=== PATIENT | male | born 1990 | race Caucasian/White ===

== ENCOUNTER 2020-05-03 16:32 | Outpatient (REF) | payer MEDICARE, MEDICAID, SELFPAY ==
[2020-05-03 17:55] LABS: Anion Gap 16 (12-20); Blood Urea Nitrogen 20 mg/dL (9-16); Calcium 10.1 mg/dL (8.4-10.2); Carbon Dioxide 29 mmol/L (22-29); Chloride 97 mmol/L (96-108); Estimated Glomerular Filt Rate > 60; Glucose Random 131 mg/dL (60-115); Sodium 138 mmol/L (135-145)
== END 2020-05-03 16:33 | disposition home or self-care (01) ==
LOC: HO.LAB 16:32
PROVIDERS: PCP Internal Medicine; Visit Provider Internal Medicine
DX: I10 Essential (primary) hypertension (principal)
CPT/HCPCS: 36415; 80048

== ENCOUNTER 2021-02-06 10:04 | Emergency (ER) | payer MEDICARE, OTHER, SELFPAY ==
--- NOTE | 2021-02-06 | ECG_ITS ---
Test Reason : chest pain Blood Pressure : / mmHG Vent. Rate : 102 BPM Atrial Rate : 102 BPM P-R Int : 132 ms QRS Dur : 076 ms QT Int : 338 ms P-R-T Axes : 042 -09 057 degrees QTc Int : 440 ms Sinus tachycardia Left axis deviation Otherwise normal ECG No previous ECGs available Referred By: Generic ED Physician Electronically Signed By:SUSHANT MCDOWELL MD
--- NOTE | ~2021-02-06 | XR_ITS ---
EXAMINATION: XR CHEST CLINICAL INFORMATION: Chest pain COMPARISON: Chest radiographs 05/12/2015 TECHNIQUE: Frontal view of the chest was obtained. FINDINGS: The lungs are clear. There is no pneumothorax or pleural reaction. No airspace consolidation or effusion. The heart is normal in size. The hilar and mediastinal contours and visualized bony structures are unremarkable. XR/XR chest 1V IMPRESSION: Unremarkable examination.
[2021-02-06 10:10] VITALS: BP 163/117; PULSE 98; RESP 19; TEMP 36.9; O2SAT 98; BMI 41.0
--- NOTE | 2021-02-06 11:21 | ED_ITS ---
HPI - General Adult General Chief complaint: General Medical Stated complaint: hbp Time Seen by Provider: 02/06/21 11:09 Source: patient Mode of arrival: ambulatory Limitations: no limitations History of Present Illness HPI narrative: 30-year-old male with a past medical history of hypertension, anxiety, asthma, [id number] diabetes with complaints of high blood pressure. Patient tells me that he was taking lisinopril, hydrochlorothiazide until about 8 months ago when he discontinued the medication due to side effects. Patient tells me at that time he also to not taking his metformin because he thought this may also be contributing to his side effects. He tells me that his side effects consistent anxiety, intermittent chest pain, increased urination. Patient tells me he has been checking his blood sugars since discontinued the metformin and has been running normal throughout the day. He tells me he discussed the side effects his primary care doctor but does not feel like they are listening to him. He also complaining of intermittent chest pain over this course of time which comes on during rest and with exertion and last for several seconds and then self-resolves. It feels like a punch. No associated shortness of breath, nausea, vomiting, vision changes, headache, dizziness, diaphoresis or shortness of breath. Also admits to anxiety. Has longstanding history of same. Had been seeing a therapist but has not seen 1 in quite some time and is interested today. No suicidal thoughts Related Data Previous Rx's Medication Instructions Recorded hydrochlorothiazide 25 mg tablet 25 mg PO DAILY #30 tab 02/06/21 lisinopril 20 mg tablet 20 mg PO DAILY #30 tab 02/06/21 Allergies Allergy/AdvReac Type Severity Reaction Status Date / Time No Known Allergies Allergy Unverified 12/14/19 16:12 [No Known Allergies*] Review of Systems Review of Systems: Yes all other systems are reviewed and are negative Constitutional: Constitutional: Reports no additional constitutional complaints, Denies body ache(s), Denies chills, Denies fever(s), Denies headache(s) and Denies weakness Eyes: Eyes: Reports no additional eye complaints and Denies change in vision ENT: Reports system reviewed and no additional complaints, except as documented, Denies dizziness, Denies headache(s), Denies nasal congestion, Denies nasal discharge and Denies neck pain Cardiovascular: Cardiovascular: Reports no additional cardiovascular complaints, Reports chest pain, Denies leg edema and Denies dyspnea Respiratory: Respiratory: Reports no additional respiratory complaints, Denies cough and Denies dyspnea Gastrointestinal: Gastrointestinal: Reports no additional gastrointestinal complaints, Denies abdominal pain, Denies diarrhea, Denies nausea and Denies vomiting Genitourinary: Genitourinary: Denies urinary incontinence Musculoskeletal: Musculoskeletal: Reports no additional musculoskeletal complaints, Denies back pain, Denies arthralgias, Denies joint swelling, Denies neck pain, Denies numbness and Denies tingling Integumentary/Breasts: Skin/Breast: Reports system reviewed and no additional complaints, except as docu and Denies rash Neurologic: Reports system reviewed and no additional complaints, except as documented, Denies Abnormal speech present, Denies dizziness, Denies headache(s), Denies numbness, Denies tingling and Denies weakness Psychiatric: Psychiatric: Reports anxiety PMFSH Past Medical History Attestation statement: The following information was validated with the patient. Source: old records reviewed and nursing notes reviewed Medical History (Reviewed 02/06/21 @ 11: by Anisa Goodrich NP) Asthma Diabetes type 2, uncontrolled HTN (hypertension) Social History Social History (Reviewed 02/06/21 @ 11: by Anisa Goodrich NP) Advance Directives: No Advance Directives Information Provided: No Physical Exam Vital Signs: Vital Signs: Last Vital Signs Temp 98.2 F 02/06/21 11:28 Pulse 83 02/06/21 13:25 Resp 17 02/06/21 11:28 BP 150/89 H 02/06/21 13:25 Pulse Ox 97 02/06/21 11:28 Body Mass Index 41.0 Const: General: cooperative, healthy appearing, comfortable and no acute distress Orientation/consciousness: patient oriented x3 Limitations: no limitations HENMT: Head: Yes normal to inspection Ears: hearing grossly normal bilaterally General nose exam: Normal external nose present Face and sinus: Yes normal facial exam Mouth: Normal oral and palatal mucosa present Throat: Yes posterior oropharynx normal Eyes: General: appearance normal, both eyes and all related structures Pupils: Equal, round and reactive pupils present Neck: Neck: Yes normal visual inspection Chest: Chest palpation & inspection: normal inspection of the chest Resp: Effort & Inspection: normal respiratory effort Auscultation: clear to auscultation bilaterally Cardio: Rate: regular rate Rhythm: regular rhythm Peripheral pulses: Peripheral pulses 2+ throughout GI: Inspection: Yes normal to inspection Palpation (GI): Soft to palpation and nontender Auscultation: normal bowel sounds Back/Spine/Pelvis: Thoracic/Lumbar Spine: thoracic and lumbar spine normal to inspection Skin: General skin exam: no rashes or lesions noted Neuro: General: patient oriented x3, no focal motor deficits and normal sensation to monofilament Cranial nerves: Yes Equal, round and reactive pupils present Cognition (Neuro): normal cognition Speech: No Abnormal speech present Gait exam (Neuro): Normal gait present Motor exam (neuro): 5/5 motor strength present throughout Extrem: General: Yes normal to inspection, Yes no pedal edema and Yes no calf tenderness Course Course Course Narrative: 30-year-old male with the history of asthma, anxiety, vvn-muokzdr-lsokaggda diabetes, hypertension non compliant with medication here with complaints of high blood pressure, intermittent chest pain and feeling anxious for months. Patient discontinued his medications due to side effects which he says are chest pain, anxiety and increased urination. He did take his blood pressure medications this morning at 08:30 (lisinopril 20m g, HCTZ 25mg) but feels like they did not help. Chest pain is been intermittent for months. Will check labs, EKG, chest x-ray. Repeat blood pressure nursing when I saw the patient was 170/90. Will add 20 mg of lisinopril. Involved care team as patient reports increased anxiety and is seeking outpatient referral. [facility] patient no longer has a primary care doctor and is seeking new one. 1300-labs, EKG show no acute finding. Chest x-ray is negative. Patient was given referrals for [facility] and primary care follow-up. Medical Decision Making MDM Narrative Medical decision making narrative: Less likely ACS with intermittent pain for 3 months, negative troponin and EKG Medical Records Medical records reviewed: Yes I reviewed the patient's medical records. Lab Data Lab results reviewed: Yes I reviewed the patient's lab results. Result diagrams: 02/06/21 11:49 02/06/21 11:49 Labs: Lab Results 02/06/21 02/06/21 02/06/21 Range/Units 11:49 11:49 11:49 WBC 8.9 (4.8-10.8) X10*3/uL RBC 5.50 (4.60-5.80) X10*6/uL Hgb 16.2 (14.0-18.0) g/dl Hct 47.0 (42.0-52.0) % MCV 85.5 (80.0-98.0) fL MCH 29.5 (27.0-33.0) pg MCHC 34.5 (31.0-36.0) g/dl RDW 11.9 (11.0-16.0) % Plt Count 233 (160-400) X10*3/uL MPV 11.9 (9.4-12.4) fL Immature Gran % (Auto) 0.6 H (0.0-0.4) % Neut % (Auto) 73.5 H (45-73) % Lymph % (Auto) 18.7 L (20-40) % [place] % (Auto) 6.2 (2-11) % Eos % (Auto) 0.7 (0-4) % Baso % (Auto) 0.3 (0-2) % Lymph # (Auto) 1.7 (1.2-4.9) X10*3/uL [place] # (Auto) 0.6 (0.1-1.2) X10*3/uL Eos # (Auto) 0.1 (0.0-0.4) X10*3/uL Baso # (Auto) 0.0 (0.0-0.2) X10*3/uL Abs Immat Gran (auto) 0.05 H (0.00-0.03) X10*3/uL Absolute Neuts (auto) 6.5 (2.0-8.3) x10*3/uL Absolute Nucleated RBC 0.000 (0.0-0.012) X10*3/uL Nucleated RBC % (auto) 0.0 (0.0-0.2) /100WBC Sodium 133 L (135-145) mmol/L Potassium 3.7 (3.3-5.1) mmol/L Chloride 97 (96-108) mmol/L Carbon Dioxide 29 (22-29) mmol/L Anion Gap 11 L (12-20) BUN 12 (9-16) mg/dL Creatinine 0.83 (0.5-1.4) mg/dL Estim Creat Clear Calc 145.2 Estimated GFR > 60 Random Glucose 198 H D (60-115) mg/dL Calcium 10.1 (8.4-10.2) mg/dL Troponin I High Sens 3.7 (<3.5-35.0) ng/L Imaging Data Chest x-ray: Attestation: I personally reviewed and interpreted this imaging study as follows: Radiologist's impression: [place] [id number] XRay Report Signed Patient: Lalo Glover MR#: [id number] : 1990 Acct:[id number] Age/Sex: 30 / M ADM Date: 02/06/21 Loc: .ED Attending Dr: Ordering Physician: Zeus Henriquez MD Date of Service: 02/06/21 Procedure(s): XR chest 1V Accession Number(s): [id number] cc: Zeus Henriquez MD~ EXAMINATION: XR CHEST CLINICAL INFORMATION: Chest pain COMPARISON: Chest radiographs 05/12/2015 TECHNIQUE: Frontal view of the chest was obtained. FINDINGS: The lungs are clear. There is no pneumothorax or pleural reaction. No airspace consolidation or effusion. The heart is normal in size. The hilar and mediastinal contours and visualized bony structures are unremarkable. XR/XR chest 1V IMPRESSION: Unremarkable examination. ? ECG Data Attestation: I personally reviewed and interpreted this ECG as follows: Interpretation: Sinus tachycardia with a rate of 102, normal MO, normal QRS Discharge Plan Discharge Clinical Impression: Hypertension, Atypical chest pain Patient Disposition: Home, Self-Care Instructions: Chest Wall Pain (ED), Hypertension and Diabetes (ED) Additional Instructions: Restart your medication You were given contact information for a new primary care as well as [facility] Prescriptions: New hydrochlorothiazide 25 mg tablet 25 mg PO DAILY Qty: 30 RF: 0 lisinopril 20 mg tablet 20 mg PO DAILY Qty: 30 RF: 0 Referrals: Xavi Khan MD [Primary Care Provider] - 2 days Discharge Date/Time: 02/06/21 13:34
[2021-02-06 11:28] VITALS: BP 170/98; PULSE 90; RESP 17; TEMP 36.8; O2SAT 97
[2021-02-06] MEDS: lisinopriL 20 MG TABLET PO (11:36)
[2021-02-06 11:59] LABS: MANUAL DIFF FLAG NO
[2021-02-06 12:03] LABS: Basophils Percent Auto 0.3 % (0-2); Eosinophils Absolute Auto 0.1 X10*3/uL (0.0-0.4); Eosinophils Percent Auto 0.7 % (0-4); Hemoglobin 16.2 g/dl (14.0-18.0); Imm Gran Abs Auto 0.05 X10*3/uL (0.00-0.03); Imm Gran Pct Auto 0.6 % (0.0-0.4); Lymphocytes Absolute Auto 1.7 X10*3/uL (1.2-4.9); Lymphocytes Percent Auto 18.7 % (20-40); Mean Corpuscular HGB Conc 34.5 g/dl (31.0-36.0); Mean Corpuscular Hemoglobin 29.5 pg (27.0-33.0); Mean Corpuscular Volume 85.5 fL (80.0-98.0); Mean Platelet Volume 11.9 fL (9.4-12.4); Monocytes Absolute Auto 0.6 X10*3/uL (0.1-1.2); Monocytes Percent Auto 6.2 % (2-11); Neutrophils Absolute Auto 6.5 x10*3/uL (2.0-8.3); Neutrophils Percent Auto 73.5 % (45-73); Platelet Count 233 X10*3/uL (160-400); Red Cell Distribution Width 11.9 % (11.0-16.0); White Blood Count 8.9 X10*3/uL (4.8-10.8)
[2021-02-06 12:17] LABS: Anion Gap 11 (12-20); Blood Urea Nitrogen 12 mg/dL (9-16); Calcium 10.1 mg/dL (8.4-10.2); Carbon Dioxide 29 mmol/L (22-29); Chloride 97 mmol/L (96-108); Creatinine Clr Calc Pharmacy 145.2; Estimated Glomerular Filt Rate > 60; Glucose Random 198 mg/dL (60-115); Potassium 3.7 mmol/L (3.3-5.1); Sodium 133 mmol/L (135-145)
[2021-02-06 12:23] LABS: Troponin-I High Sensitivity 3.7 ng/L (<3.5-35.0)
[2021-02-06 12:56] VITALS: BP 177/90; PULSE 81
[2021-02-06 13:25] VITALS: BP 150/89; PULSE 83
== END 2021-02-06 13:34 | disposition home or self-care (01) ==
PROVIDERS: Emergency Provider Emergency Medicine Emergency Medical Services; PCP Internal Medicine
DX: I10 Essential (primary) hypertension (principal); R07.89 Other chest pain; E11.9 Type 2 diabetes mellitus without complications; Z91.14 Patient's other noncompliance with medication regimen
CPT/HCPCS: 36415; 71045; 80048; 84484; 85025; 93005; 99283; 99284

== ENCOUNTER 2021-03-27 10:35 | Outpatient (REF) | payer MEDICARE, MEDICAID, SELFPAY ==
[2021-03-27 11:23] LABS: COVID-19 Test Positive (Negative); IDNOW Serial# 16C4AD1C
== END 2021-03-27 10:36 | disposition home or self-care (01) ==
LOC: HO.LAB 10:35
PROVIDERS: Visit Provider Internal Medicine
DX: Z20.822 Contact with and (suspected) exposure to COVID-19 (principal)
CPT/HCPCS: 36415; 87635; C9803

== ENCOUNTER 2021-07-11 15:05 | Emergency (ER) | payer MEDICARE, OTHER, SELFPAY ==
[2021-07-11] VITALS (8 sets, daily range): BP systolic 158–178; BP diastolic 87–113; PULSE 79–100; RESP 16–20; TEMP 36.6–37.2; O2SAT 96–99; BMI 39.1
--- NOTE | ~2021-07-11 | XR_ITS ---
EXAMINATION: XR CHEST CLINICAL INFORMATION: Chest pain COMPARISON: Chest 02/06/2021 TECHNIQUE: Frontal view of the chest was obtained. FINDINGS: No significant abnormality is noted involving the heart, lungs, mediastinum, bony thorax or soft tissues. XR/XR chest 1V IMPRESSION: Unremarkable chest examination.
--- NOTE | 2021-07-11 15:15 | ECG_ITS ---
Test Reason : CHEST PAIN Blood Pressure : / mmHG Vent. Rate : 104 BPM Atrial Rate : 104 BPM P-R Int : 140 ms QRS Dur : 076 ms QT Int : 334 ms P-R-T Axes : 033 -11 059 degrees QTc Int : 439 ms Sinus tachycardia Otherwise normal ECG When compared with ECG of 06-FEB-2021 10:20, No significant change was found Referred By: Generic ED Physician Electronically Signed By:Olaf Ackerman
[2021-07-11 15:34] LABS: MANUAL DIFF FLAG NO
[2021-07-11 15:37] LABS: Basophils Absolute Auto 0.1 X10*3/uL (0.0-0.2); Basophils Percent Auto 0.6 % (0-2); Eosinophils Absolute Auto 0.1 X10*3/uL (0.0-0.4); Eosinophils Percent Auto 0.7 % (0-4); Hematocrit 44.2 % (42.0-52.0); Hemoglobin 15.3 g/dl (14.0-18.0); Imm Gran Abs Auto 0.03 X10*3/uL (0.00-0.03); Imm Gran Pct Auto 0.3 % (0.0-0.4); Lymphocytes Absolute Auto 2.5 X10*3/uL (1.2-4.9); Lymphocytes Percent Auto 24.3 % (20-40); Mean Corpuscular HGB Conc 34.6 g/dl (31.0-36.0); Mean Corpuscular Hemoglobin 29.8 pg (27.0-33.0); Mean Corpuscular Volume 86.2 fL (80.0-98.0); Monocytes Absolute Auto 0.6 X10*3/uL (0.1-1.2); Monocytes Percent Auto 5.9 % (2-11); Neutrophils Absolute Auto 7.1 x10*3/uL (2.0-8.3); Neutrophils Percent Auto 68.2 % (45-73); Platelet Count 229 X10*3/uL (160-400); Red Blood Count 5.13 X10*6/uL (4.60-5.80); White Blood Count 10.4 X10*3/uL (4.8-10.8)
--- NOTE | 2021-07-11 15:48 | ED.CHESTPAIN ---
HPI - Chest Pain General Chief Complaint: Chest Pain Stated Complaint: High BP/chest pains Time Seen by Provider: 07/11/21 15:47 Source: patient Mode of arrival: ambulatory Limitations: no limitations History of Present Illness HPI narrative: This is a 30-year-old male past medical history significant for asthma, diabetes, hypertension presenting to the emergency department with complaints of chest pain and high blood pressure at home x1 day. Patient tells me that he wanted to come into the hospital because he forgot to take his blood pressure medicine he was not sure if he could take them later than his scheduled time. He noted that his blood pressure at home was systolic 190, diastolic 120. He tells me after he saw these numbers he became very anxious and started experiencing chest pain substernal in nature, nonradiating, a squeezing/heaviness sensation. He tells me that he typically gets this chest pain when he gets anxious. He tells me he also had a sleepless night. He denies shortness of breath, nausea, vomiting, diaphoresis, vision changes, dizziness, weakness. MD complaint: chest discomfort Onset (ago): day(s) (1) Timing of current episode: episodic Prior episodes: Yes Onset: during rest Pain location: substernal Pain radiation: none Severity: mild Quality: heaviness Relieving factors: nothing Exacerbating factors: nothing Treatment prior to arrival: none Related Data Previous Rx's Medication Instructions Recorded hydrochlorothiazide 25 mg tablet 25 mg PO DAILY #30 tab 02/06/21 lisinopril 20 mg tablet 20 mg PO DAILY #30 tab 02/06/21 hydroxyzine HCl 25 mg tablet 25 mg PO BID PRN #10 tab 07/11/21 Allergies Allergy/AdvReac Type Severity Reaction Status Date / Time No Known Allergies Allergy Verified 07/11/21 15:14 [No Known Allergies*] Review of Systems Review of Systems: Constitutional : No Weight loss, No Fever, No Chills, No Fatigue, No Malaise ENT/Mouth : No sore throat, No Rhinorrhea Eyes: No Eye Pain, No Swelling, No Redness Cardiovascular : No Chest Pain, No SOB, No Dyspnea on Exertion, No Orthopnea, No Edema, No Palpitations Respiratory : No Cough, No Sputum, No Wheezing Gastrointestinal : No Nausea, No Vomiting, No Diarrhea, No Constipation, No abdominal Pain, No Hematochezia, No Melena Genitourinary : No Dysuria, No Urinary Frequency, No Hematuria, Musculoskeletal : No joint pain, No Myalgias, No Joint Swelling Skin : No Skin Lesions, No rash Neuro : No Weakness, No Numbness, No Dizziness, No Headache Psych : No Anxiety/Panic, No Depression All other systems reviewed and are negative Yes all other systems are reviewed and are negative [facility] Past Medical History Attestation statement: The following information was validated with the patient. Source: nursing notes reviewed Medical History Asthma Diabetes type 2, uncontrolled HTN (hypertension) Social History Social History Advance Directives: No Advance Directives Information Provided: No Physical Exam Vital Signs: Vital Signs: Last Vital Signs Temp 99.0 F 07/11/21 20:00 Pulse 79 07/11/21 20:46 Resp 16 07/11/21 20:46 BP 169/109 H 07/11/21 20:46 Pulse Ox 96 07/11/21 20:46 BMI result Body Mass Index 39.1 Patient noted to be slightly tachycardic and hypertensive. Appearance: Alert.? Oriented X3.? No acute distress.? Head: Normocephalic, atraumatic, no step-offs or deformities Eyes: Pupils equal, round and reactive to light.? Extraocular movements intact. No nystagmus. ENT: Pharynx normal.? Neck: Normal inspection.? Neck supple.? CVS: Normal heart rate and rhythm.? Pulses normal.? Respiratory: No respiratory distress.? Breath sounds normal.? Abdomen: Soft and nontender.? Skin: Skin warm and dry.? Normal skin color.? Normal skin turgor.? Extremities: No lower extremity edema.? No calf ttp, neagtive deborah b/l. 5/5 strength to bilateral upper and lower extremities Back: No midline tenderness, no C-spine tenderness, full range of motion, no CVA tenderness bilaterally Neuro: Oriented X 3.? No motor deficit.? No sensory deficit. CN 2-12 intact . Normal diupys-db-vfrg, wphi-ye-otzs, steady tandem gait with normal coordination. Course Reevaluation(s) Reevaluation #1: CBC within normal limits. Chemistry with no acute electrolyte abnormalities. BUN slightly elevated and random glucose 213 patient will receive fluids. Troponin negative. EKG nonischemic unlikely that this is ACS. BNP pending. Patient's blood pressure improved slightly 165/87. Patient remains asymptomatic. Neuro exam is nonfocal. Time: 16:26 Reevaluation #2: Chest x-ray unremarkable. BNP within normal limits. Unlikely this is CHF. Time: 16:37 Reevaluation #3: At this time patient tells me he is feeling better no longer having chest pain 0/10. 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 He thinks that maybe this is the underlying cause of his high blood pressure. Denies SI and HI. He tells me he is feeling slightly overwhelmed with everything. Will give him a dose of Atarax and if this works he will be discharged home with this medication. Time: 17:18 Additional Reevaluation(s): Patient tells me he is anxious. His blood pressure still elevated however he denies any symptoms such as headache, vision changes, neck pain, palpitations, chest pain. He tells me that his chest pain has completely subsided. I gave him Atarax for anxiety he tells me he feels like it helped. I discussed this with my attending Dr. Riley who agrees with me that patient can be discharged home w/ pcp follow up and cardiology referral, she also recommend a 1 time dose of labetalol 100 mg p.o.. He tells me that he has blood pressure medications at home and he does not need refills for any of these, he tells me he will take them as prescribed, and he will follow up with PCP and cardiology. He will be discharged home with anxiety medicine. At this time I feel comfortable with discharge home with PCP and cardiology follow-up. Gave patient strict return precautions and advised him to return with new or worsening symptoms. MDM - Chest Pain MDM Narrative Medical decision making narrative: 1550 30 yo m presents with chest pain and hypertension x1 day. Not med compliant. NIH stroke scale 0. Physical exam benign. Neuro exam nonfocal. Negative deborah b/l. Patient is slightly hypertensive however will administer his home medications at this time. History and physical examination not consistent with dissection, PE. Unlikely that this is ACS. Likely anxiety. However will rule out ACS. Plan at this time is cardiac workup, cardiac monitoring. Medical Records Data Attestation: I reviewed the patient's medical records. Lab Data Attestation: I reviewed the patient's lab results. Result diagrams: 07/11/21 15:23 07/11/21 15:23 Labs: Lab Results 07/11/21 07/11/21 07/11/21 Range/Units 15: 15: 15: WBC 10.4 (4.8-10.8) X10*3/uL RBC 5.13 (4.60-5.80) X10*6/uL Hgb 15.3 (14.0-18.0) g/dl Hct 44.2 (42.0-52.0) % MCV 86.2 (80.0-98.0) fL MCH 29.8 (27.0-33.0) pg MCHC 34.6 (31.0-36.0) g/dl RDW 12.0 (11.0-16.0) % Plt Count 229 (160-400) X10*3/uL MPV 12.0 (9.4-12.4) fL Immature Gran % (Auto) 0.3 (0.0-0.4) % Neut % (Auto) 68.2 (45-73) % Lymph % (Auto) 24.3 (20-40) % [place] % (Auto) 5.9 (2-11) % Eos % (Auto) 0.7 (0-4) % Baso % (Auto) 0.6 (0-2) % Lymph # (Auto) 2.5 (1.2-4.9) X10*3/uL [place] # (Auto) 0.6 (0.1-1.2) X10*3/uL Eos # (Auto) 0.1 (0.0-0.4) X10*3/uL Baso # (Auto) 0.1 (0.0-0.2) X10*3/uL Abs Immat Gran (auto) 0.03 (0.00-0.03) X10*3/uL Absolute Neuts (auto) 7.1 (2.0-8.3) x10*3/uL Absolute Nucleated RBC 0.000 (0.0-0.012) X10*3/uL Nucleated RBC % (auto) 0.0 (0.0-0.2) /100WBC Sodium 137 (135-145) mmol/L Potassium 3.6 (3.3-5.1) mmol/L Chloride 101 (96-108) mmol/L Carbon Dioxide 26 (22-29) mmol/L Anion Gap 14 (12-20) BUN 17 H (9-16) mg/dL Creatinine 1.21 (0.5-1.4) mg/dL Estim Creat Clear Calc 100.4 Estimated GFR > 60 Random Glucose 213 H (60-115) mg/dL Calcium 9.7 (8.4-10.2) mg/dL Troponin I High Sens < 3.5 (<3.5-35.0) ng/L B-Natriuretic Peptide < 10 (<100) pg/mL ECG Data ECG #1: Attestation: I personally reviewed and interpreted this ECG as follows: ECG interpretation date: 07/11/21 ECG interpretation time: 15:52 Prior ECG tracings: available for review Interpretation: Ventricular rate of 104 MN normal, QRS normal, QT/QTC normal. EKG shows sinus tachycardia, no ST elevations or inversions concerning for ischemia. No significant changes when compared to EKG of January 2021. Critical Care Time Critical Care Time Critical Care Time: No Discharge Plan Discharge Clinical Impression: High blood pressure, Chest pain not due to acute coronary syndrome, Anxiety Patient Disposition: Home, Self-Care Instructions: Chest Pain (ED), Heart Healthy Diet (ED), Low-Sodium Diet (ED), Hypertension (ED), Anxiety (ED), Hypertension and Diabetes (ED) Additional Instructions: Take your medications as prescribed. If you were prescribed antibiotics today, it is important that you take your medication to their entirety, do not skip any doses, do not finish them early. Follow-up with your primary care provider this week. Follow up with cardiology wednesday call to schedule an appointment Return to the emergency department with new or worsening symptoms. Such as fevers, chills, chest pain, shortness of breath, nausea, vomiting, dizziness, headache, vision changes, lethargy, vision changes, palpitations, confusion In case of emergency call 911 Please check your blood pressure Wednesday, Wednesday, Wednesday write it down in please speak to your doctor about these findings. Prescriptions: New hydroxyzine HCl 25 mg tablet 25 mg PO BID PRN (Reason: anxiety) Qty: 10 0RF No Action hydrochlorothiazide 25 mg tablet 25 mg PO DAILY Qty: 30 0RF lisinopril 20 mg tablet 20 mg PO DAILY Qty: 30 0RF Referrals: Physician,None [Primary Care Provider] - 2 days Olaf Ackerman MD [Physician] - 2 days Stand Alone Forms: Work/School Release
[2021-07-11 15:51] LABS: Anion Gap 14 (12-20); Blood Urea Nitrogen 17 mg/dL (9-16); Calcium 9.7 mg/dL (8.4-10.2); Carbon Dioxide 26 mmol/L (22-29); Chloride 101 mmol/L (96-108); Creatinine Clr Calc Pharmacy 100.4; Estimated Glomerular Filt Rate > 60; Glucose Random 213 mg/dL (60-115); Potassium 3.6 mmol/L (3.3-5.1); Sodium 137 mmol/L (135-145)
[2021-07-11 16:02] LABS: Troponin-I High Sensitivity < 3.5 ng/L (<3.5-35.0)
[2021-07-11 16:34] LABS: B Type Natriuretic Peptide < 10 pg/mL (<100)
[2021-07-11] MEDS: hydroCHLOROthiazide 25 MG TABLET PO (16:36)
[2021-07-11] MEDS: lisinopriL 20 MG TABLET PO (16:36)
[2021-07-11] MEDS: 0.9 % Sodium Chloride 1,000 ML 999 ML IV (16:36)
[2021-07-11] MEDS: hydrOXYzine HCL 25 MG TABLET PO (18:48)
--- NOTE | 2021-07-11 18:55 | PC.NURSE ---
pt resting comfortably, denies chest discomfort.
[2021-07-11] MEDS: Labetalol HCL 100 MG TABLET PO (20:49)
--- NOTE | 2021-07-11 21:10 | PC.NURSE ---
pt denies pain, poc recheck 146 skin pink warm and dry. nsr 86 on monitor. pt alert oriented and denies n/v/d
[2021-07-11 21:14] LABS: Glucose, Whole Blood 146 mg/dL (60-115)
== END 2021-07-11 21:39 | disposition home or self-care (01) ==
LOC: HO.ED 15:52
PROVIDERS: Physician Assistant; Emergency Provider Emergency Medicine
DX: R07.89 Other chest pain (principal); F41.1 Generalized anxiety disorder; F43.0 Acute stress reaction; R06.02 Shortness of breath; I10 Essential (primary) hypertension; Z79.899 Other long term (current) drug therapy
CPT/HCPCS: 36415; 71045; 80048; 82947; 83880; 84484; 85025; 93005; 96360; 99284; 99285

== ENCOUNTER 2024-11-21 12:40 | Emergency (ER) | payer MEDICARE, SELFPAY ==
--- OUTSIDE RECORDS SUMMARY | 2024-11-21 11:00 | XMS_ITS | Encounter Summary ---
Author Organization [employer] Address [address] [facility] 7[address] [place] [address] Care Team Providers Care Crushing Mill Operator Name Role Phone Xavi Khan MD Primary Care Provider [phone] Encounter Details Date Type Department Care Team (Late st Contact Info) Description 11/21/2024 11:00 AM EDT Office Visit [facility] [address] [place], [place] [phone] Chris Thompson MD [address] [place] [address] Cutaneous abscess of left axilla (Primary Dx); Essential hypertension Social History Tobacco Use Types Packs/Day Years Used Date Smoking Tobacco: Never Smokeless Tobacco: Never Alcohol Use Standard Drinks/Week Comments Never 0 (1 standard drink = 0.6 oz pur e alcohol) Depression Answer Date Recorded Patient Health Questionnaire-9 Score 0 06/11/2022 Housing Stability Answer Date Recorded What is your housing situation today? I have camryn waters 02/09/[address] you li ve. Do you have problems with any of the following? None of the above 02/09/2024 Food Insecurity Answer Date Recorded Within the past 12 months, y ou worried that your food would run out before you got money to buy more: Never True 02/09/2024 Within the past 12 months,th e food you bought just didn't last and you didn't have enough money to get more: Never True Transportation Answer Date Recorded In the past 12 months, has l ack of transportation kept you from medical appts, meetings, work or from getting things needed for daily living? Yes, it has kept me from medical appointments or getting medications. 09/12/2024 Utilities Answer Date Recorded In the past 12 months, has t he electric, gas, oil or water company threatened to shut off services in your home? No 02/09/2024 Depression Answer Date Recorded Patient Health Questionnaire-2 Score 0 06/11/2022 Internet Access Answer Date Recorded Internet Access Q1 Yes 02/09/2024 Internet Access Q2 Not on file 02/09/2024 Sex and Gender Information Value Date Recorded Sex Assigned at Male 01/26/2022 10:17 AM EDT Legal Sex Male 10:17 AM EDT Gender Identity Choose not to disclose 10:17 AM EDT Sexual Orientation Choose not to disclose 2021 10:17 AM EDT documented as of this encounter Last Filed Vital Signs Vital Sign Reading Time Taken Comments Blood Pressure 158/110 11/21/2024 12:04 PM EDT Pulse 96 11/21/2024 11:11 AM EDT Temperature - - Respiratory Rate 16 11/21/2024 11:11 AM EDT Oxygen Saturation 98% 11/21/2024 11:11 AM EDT Inhaled Oxygen Concentration - - Weight 98.2 kg (216 lb 6.4 oz) 11/21/2024 11:11 AM EDT Height 172.7 cm (5' 8 ) 11/21/2024 11:11 AM EDT Body Mass Index 32.9 11/21/2024 11:11 AM EDT documented in this encounter Progress Notes * Chris Thompson MD - 11/21/2024 11:00 AM EDT Subjective Patient ID: Lalo Berry is a 34 y.o. adult. HPI Lalo noted painful, swollen area in left axilla. Using warm compresses. No fever, chills, drainage. Ran out of Med[employer] yesterday, didn't take meds today. Lives alone. Works maintenance. Never smoked. Patient Active Problem List Diagnosis Date Noted Type 2 diabetes mellitus with hyperglycemia, without long-term current use of insulin ([facility]) 09/19/2024 Essential hypertension 06/11/2022 Liver function test abnormality 03/14/2022 Obesity (BMI 30-39.9) 02/27/2016 The following portions of the chart were reviewed this encounter and updated as appropriate: Tobacco Allergies Meds Problems Med Hx Surg Hx Fam Hx Review of Systems Constitutional: Negative for fever. Respiratory: Negative for shortness of breath. Cardiovascular: Negative for chest pain. Gastrointestinal: Negative for abdominal pain. Skin: Positive for rash. Neurological: Negative for headaches. Objective Physical Exam Vitals and nursing note reviewed. Constitutional: Appearance: Normal appearance. HENT: Head: Normocephalic and atraumatic. Nose: Nose normal. Eyes: Conjunctiva/sclera: Conjunctivae normal. Pupils: Pupils are equal, round, and reactive to light. Pulmonary: Effort: Pulmonary effort is normal. Skin: General: Skin is warm and dry. Comments: Erythematous, swollen, fluctuant, tender abscess left axilla. 5.5 cm diameter Neurological: Mental Status: Lalo is alert. Gait: Gait is intact. Psychiatric: Mood and Affect: Mood and affect normal. Behavior: Behavior normal. Procedures Assessment/Plan Diagnoses and all orders for this visit: Cutaneous abscess of left axilla [facility] general surgeons are unable to schedule the patient. Prescribed doxycycline. He will be going to [facility] emergency department now for presumptive I&D. Essential hypertension I spoke with the [facility] pharmacy, and they state the patient's med box has been ready for pickup. He agreed to get the med box today and restart his medication. BP will be rechecked at the ED. Has home BP monitor. States BP is usually elevated when he checks it. Reviewed BP parameters, given written BP log that includes BP parameters, to keep daily. He will bring BP log to PCP visit that was scheduled for December 05. documented in this encounter Plan of Treatment Upcoming Encounters Date Type Department Care Team (Late st Contact Info) Description 12/05/2024 2:00 PM EDT Office Visit [facility] [address] [place] [address] Xavi Khan MD [address] [place] [address] 12/11/2024 11:00 AM EDT Medication Management [facility] [address] [place] [address] Radha Zayas, PharmD [address] [place] [address] documented as of this encounter Goals Goal Patient Goal Type Associated Problems Recent Progress Patient-Stated? Author Blood Pressure < 140/90 Blood Pressure 158/110(2024 12:04 PM EDT) No Eric Marie, PharmD documented as of this encounter Visit Diagnoses Diagnosis Cutaneous abscess of left axilla- Primary Essential hypertension Unspecified essential hypertension documented in this encounter Additional Health Concerns Assessment Noted Time PHQ-9 Depression Total Score: 0 06/12/19 23 2:27 PM EDT documented as of this encounter Care Teams Crushing Mill Operator Relationship Specialty Start Date End Date Xavi Khan MD [address] [place] [address] PCP - General Internal Medicine 03/29/18 documented as of this encounter
[2024-11-21 14:04] VITALS: BP 156/92; PULSE 91; RESP 18; TEMP 37; O2SAT 95; BMI 35.2
--- NOTE | 2024-11-21 14:19 | ED_ITS ---
HPI - General Adult General Chief complaint: Skin/Abscess/Foreign Body Stated complaint: Cyst, sent from urgent care Time Seen by Provider: 11/21/24 19:27 Source: patient Mode of arrival: ambulatory Limitations: no limitations History of Present Illness ED Provider: Peter SEE HPI narrative: Patient is a 34-year-old male presenting to the ED for evaluation of an abscess of the left axilla/arm. Patient reports for the past few months he has been suffering from recurrent small abscesses which tend to pop and drain, denies any symptoms on the right, patient reports he was attributing this to deodorant use, has not seen a PCP or can filling room sweeper regarding the findings. The patient denies associated fever/chills, nausea, vomiting, or other systemic complaint, denies any distal paresthesias or impaired range of motion. The patient reports he went to urgent care today and was sent to the ED by urgent care who stated they were unable to drain the abscess. Related Data Previous Rx's ?Medication ?Instructions ?Recorded hydrochlorothiazide 25 mg tablet 25 mg PO DAILY #30 ta bs 02/06/21 lisinopril 20 mg tablet 20 mg PO DAILY #30 tabs 01/27 04/18 hydroxyzine HCl 25 mg tablet 25 mg PO BID PRN anxiety #10 tabs 07/11/21 doxycycline hyclate 100 mg capsule 100 mg PO BID #20 c aps 11/21/24 Allergies Allergy/AdvReac Type Severity Reaction Status Date / Time No Known Allergies (No Known Allergy Verified 11/21/24 14:06 Allergies*) Review of Systems Review of Systems: Yes all other systems are reviewed and are negative PMFSH Past Medical History Medical History Asthma Diabetes type 2, uncontrolled HTN (hypertension) Social History Social History (System 11/15/23 @ 14:31 by Katherine Mcdaniel) Alcohol intake: never Advance Directives: No Advance Directives Information Provided: No Physical Exam ED Vital Signs: Vital Signs - 24 hr 11/21/24 14:04 11/21/24 16:59 11/21/24 19:13 Temperature 98.6 F 98.2 F 97.5 F Pulse Rate 91 98 87 Respiratory Rate 18 18 18 Blood Pressure 156/92 H 162/94 H 156/102 H Pulse Oximetry 95 97 97 Oxygen Delivery Method Room Air Room Air Room Air 11/21/24 20:13 Temperature 97.5 F Pulse Rate 87 Respiratory Rate 18 Blood Pressure 156/102 H Pulse Oximetry 97 Oxygen Delivery Method Room Air BMI result Body Mass Index 35.2 CONSTITUTIONAL: The patient appears non-toxic, well nourished and in no acute distress. Vital signs as documented. HEAD: Atraumatic, normocephalic. EYES: EOMs grossly intact, pupils equal, conjunctiva clear, no exudate. ENT: Nares patent, no discharge. Airway patent, no audible stridor, visible mucosa is pink and moist without noted lesions. NECK: trachea is midline, no obvious masses or gross abnormalities. CHEST: Symmetric movement, normal appearance. LUNGS: Non-labored work of breathing. CARDIAC: No evidence of hypoperfusion. ABDOMEN: Nondistended, no obvious injury. : Deferred. EXTREMITIES: Moves all extremities spontaneously without reported pain. No obvious injury or deformity noted. NEURO: Alert and oriented x3, CN II-XII appear grossly intact. Cerebellar Functioning grossly intact. Speech clear and appropriate. SKIN: Warm, dry, color appropriate. There is an approximate 3 cm x 3 cm eryt hematous, circular, superficial, fluctuant lesion consistent with abscess noted to the margin of the axilla versus proximal left bicep. There are multiple scars noted to the left axilla consistent with previous recurrent abscesses versus hidradenitis suppurativa. No other rashes or lesions noted. Course Course Course Narrative: RME: 34 year male presents to ED for left axillary biceps abscess. In present for 1 week. Patient was sent from urgent care for incision and drainage. Positive for tender lump on left bicep axillary area. No active drainage. Medications Administered Discontinued Medications Generic Name Dose Route Start Last Admin Trade Name Freq PRN Reason Stop Dose Admin Doxycycline Monohydrate 100 mg 11/21/24 19:47 11/21/24 19:56 Doxycycline Monohydrate 100 Mg Capsule PO 11/21/24 19:48 100 mg ONCE ONE Administration Ibuprofen 600 mg 11/21/24 19:50 11/21/24 19:56 Ibuprofen 600 Mg Tablet PO 11/21/24 19:51 600 mg ONCE ONE Administration Procedures Abscess I/D Site: upper extremity Side (if applicable): left Local Anesthetic: lidocaine 1% Amount of anesthesia used (mL): 2 Technique: incised with blade (#11) Amount of fluid expressed (mL): 10 Sent for culture/gram staining?: Yes Irrigation: Yes Packing used?: iodoform Medical Decision Making Medical Decision Making [facility] Narrative: 7:50 PM 11/21/2024 (Isis SEE): Patient is a 34-year-old male presenting to the ED for evaluation of an abscess of the left axilla/arm. Patient reports for the past few months he has been suffering from recurrent small abscesses which tend to pop and drain, denies any symptoms on the right, patient reports he was attributing this to deodorant use, has not seen a PCP or can filling room sweeper regarding the findings. The patient denies associated fever/chills, nausea, vomiting, or other systemic complaint, denies any distal paresthesias or impaired range of motion. The patient reports he went to urgent care today and was sent to the ED by urgent care who stated they were unable to drain the abscess. On exam patient has an approximate 3 cm x 3 cm erythematous circular, superficial, fluctuant lesion consistent with abscess noted to the margin of the axilla versus proximal left bicep. There are multiple scars noted to the left axilla consistent with previous recurrent abscesses versus hidradenitis suppurativa, right axilla is unremarkable. The remainder of the exam was benign. The patient appears nontoxic. The patient's abscess was successfully drained without complication, packing place, instructions given, patient will be discharged with doxycycline for suspected hidradenitis. Admission/Observation Consideration of admission/observation: Escalation of care including admission/observation considered External Record Review External record reviewed: Outpatient record Tests considered The following testing was considered but not selected: CT, ultrasound, CBC, CMP Prescription Management I considered prescription management with: Pain Medication and Antibiotic Discharge Plan Discharge Clinical Impression: Abscess of skin or subcutaneous tissue Patient Disposition: Home, Self-Care Instructions: Abscess (ED), Abscess Follow-up (ED), Abscess Incision and Drainage (DC) Additional Instructions: Thank you for choosing [facility]'s Emergency Department for your care today. At this time there is no indication for admission to the hospital or continued ED observation, and it is safe to discharge you home. Your presentation today is consistent with an abscess of your left axilla/armpit. The abscess was successfully drained and should begin to result in decreased pain. Due to your recurrent abscesses in his area over the past few months we are treating you with an antibiotic called doxycycline. Please take this as prescribed until it is finished. Please change your dressing twice daily for the next 48-72 hours, it is recommended that you shower to wet the area and dressing prior to removing the dressing. Then please pat the area dry and reapply a clean dry dressing. Please be sure to avoid removal of the packing while changing the dressing. After 72 hours please follow up with your primary care provider or return to the ED for wound reassessment and removal of the packing. You may take alternating (staggered) doses of ibuprofen 600mg and Tylenol 1000mg every 4 hours as needed for any additional pain. Please stay well hydrated and get plenty of rest. Please follow up with your primary care physician for re-evaluation, additional management of your symptoms, and continued preventative care. If you do not have a primary care physician, please call the [facility] at [phone] to establish a new primary care physician. While waiting to establish your new primary care physician, you can call our Walk[facility] at [phone] for non-emergency needs. Please return to the emergency department if you develop a severe or sudden change in your symptoms, a fever over 100.4 that does not improve with Tylenol or Ibuprofen, recurrent vomiting, or any other new or worsening symptoms or concerns. Prescriptions: New doxycycline hyclate 100 mg capsule 100 mg PO BID Qty: 20 0RF No Action hydroxyzine HCl 25 mg tablet 25 mg PO BID PRN (Reason: anxiety) Qty: 10 0RF hydrochlorothiazide 25 mg tablet 25 mg PO DAILY Qty: 30 0RF lisinopril 20 mg tablet 20 mg PO DAILY Qty: 30 0RF Referrals: Physician,Unknown J [Primary Care Provider, Medical] Clinical Impression: Abscess of skin or subcutaneous tissue Stand Alone Forms: Work/School Release Interventions: ED Discharge Assessment Last Done: 11/21/24 20:13 Discharge Date/Time: 11/21/24 20:13 Print Language: [place]
[2024-11-21 16:59] VITALS: BP 162/94; PULSE 98; RESP 18; TEMP 36.8; O2SAT 97
--- OUTSIDE RECORDS SUMMARY | 2024-11-21 17:09 | XMS_ITS | Encounter Summary ---
Author Organization [employer] Address [address] [facility] 7[address] [place] [address] Care Team Providers Care Data Analyst Etl Developer Name Role Phone Xavi Khan MD Primary Care Provider [phone] Reason for Visit * Reason Onset Date Comments ED Expect to [facility] 11/21/2024 Encounter Details Date Type Department Care Team (Late st Contact Info) Description 11/21/2024 Telephone [facility] [address] [place], [place] [phone] Chris Thompson MD [address] [place], [place] [phone] ED Expect to [facility] Social History Tobacco Use Types Packs/Day Years [...] AM EDT documented as of this encounter Miscellaneous Notes * Telephone Encounter - Elinor Yanez RN - 11/21/2024 12:17 PM EDT TC placed to [facility] ED spoke to KENN Berg : Cutaneous abscess of left axilla [facility] general surgeons are unable to schedule the patient. He will be going to [facility] emergency department now for presumptive I&D. Also informed Otis that pt diastolic BP 110 pt has not been taking his medication. documented in this encounter Plan of Treatment Upcoming Encounters Date Type Department Care Team (Late st Contact Info) Description 12/05/2024 2:00 PM EDT Office Visit [facility] [address] [place] [address] Xavi Khan MD [address] [place] [address] 12/11/2024 11:00 AM EDT Medication Management [facility] [address] [place] [address] Radha Zayas, PharmD [address] [place] [address] documented as of this encounter Goals Goal Patient Goal Type Associated Problems Recent Progress Patient-Stated? Author Blood Pressure < 140/90 Blood Pressure 158/110(2024 12:04 PM EDT) No Eric Marie, DeshawnD documented as of this encounter Visit Diagnoses Not on filedocumented in this encounter Additional Health Concerns Assessment Noted Time PHQ-9 Depression Total Score: 0 06/12/19 23 2:27 PM EDT documented as of this encounter Care Teams Data Analyst Etl Developer Relationship Specialty Start Date End Date Xavi Khan MD [address] [place] [id number] PCP - General Internal Medicine 03/29/18 documented as of this encounter
--- OUTSIDE RECORDS SUMMARY | 2024-11-21 17:09 | XMS_ITS | Encounter Summary ---
Author Organization [employer] Address [address] [address] Care Team Providers Care Applied Statistician Name Role Phone Xavi Khan MD Primary Care Provider [phone] Eric Marie PharmD Unavailable Unavail able Reason for Visit * Reason Comments Med Refill Encounter Details Date Type Department Care Team ([facility] st Contact Info) Description 06/11/2022 Refill [facility] [address] [place], [place] [phone] Xavi Khan MD [address] [place] [address] Type 2 diabetes mellitus without complication, without long-term current use of insulin ([facility]) (Primary Dx) Social History Tobacco Use Types Packs/Day Years Used Date Smoking Tobacco: Never Smokeless Tobacco: Never Alcohol Use Standard Drinks/Week Comments Never 0 (1 standard drink = 0.6 oz pur e alcohol) Depression Answer Date Recorded Patient Health Questionnaire-9 Score 0 06/11/2022 Depression Answer Date Recorded Patient Health Questionnaire-2 Score 0 06/11/2022 Sex and Gender Information Value Date Recorded Sex Assigned at Male 01/26/2022 10:17 AM EDT Legal Sex Male 10:17 AM EDT Gender Identity Choose not to disclose 10:17 AM EDT Sexual Orientation Choose not to disclose 2021 10:17 AM EDT COVID-19 Exposure Response Date Recorded In the last 10 days, have yo u been in contact with someone who was confirmed or suspected to have Coronavirus/COVID-19? No / Unsure 06/11/2022 1:39 PM EDT documented as of this encounter Functional Status * Over the past 2 weeks, how often have you been bothered by any of the following problems? Question Answer Date of Assessment Author Patient Health Questionnaire -2 Score 0 06/11/2022 2:27 PM EDT Alise Licona [place] * Over the past 2 weeks, how often have you been bothered by any of the following problems? Question Answer Date of Assessment Author Little interest or pleasure in doing things Not at all 06/11/2022 2:27 PM EDT Alise Licona [place] Feeling down, depressed, or hopeless Not at all 06/11/2022 2:27 PM EDT Alise Licona [place] Trouble falling or staying asleep, or sleeping too much Not at all 06/11/2022 2:27 PM EDT Ovi Licona [place] Feeling tired or having zaid le energy Not at all 06/11/2022 2:27 PM EDT Alise Licona [place] Poor appetite or overeating Not at all 06/11/2022 2: 27 PM EDT Alise Licona [place] Feeling bad about yourself - or that you are a failure or have let yourself or your family down Not at all 06/11/2022 2:27 PM EDT Alise Licona [place] Trouble concentrating on things, such as reading the newspaper or watching television Not at all 06/11/2022 2:27 PM EDT Alise Licona MA Moving or speaking so slowly that other people could have noticed? Or the opposite - being so fidgety or restless that you have been moving around a lot more than usual. Not at all 06/11/2022 2:27 PM EDT Alise Licona MA Thoughts that you would be better off or hurting yourself in some way Not at all 06/11/2022 2:27 PM EDT Alise Licona MA Patient Health Questionnaire -9 Score 0 06/11/2022 2:27 PM MEDT Alise Licona [place] documented as of this encounter Plan of Treatment Upcoming Encounters Date Type Department Care Team (Late st Contact Info) Description 12/05/2024 2:00 PM EDT Office Visit [facility] [address] [place] [address] Xavi Khan MD [address] [place] [address] 12/11/2024 11:00 AM EDT Medication Management [facility] [address] [place] [address] Radha Zayas PharmD [address] [place] [address] documented as of this encounter Goals Goal Patient Goal Type Associated Problems Recent Progress Patient-Stated? Author Blood Pressure < 140/90 Blood Pressure 158/110(2024 12:04 PM EDT) No Eric Marie, PharmD documented as of this encounter Visit Diagnoses Diagnosis Type 2 diabetes mellitus without complication, without long-term current use of insulin ([facility])- Primary documented in this encounter Additional Health Concerns Assessment Noted Time PHQ-9 Depression Total Score: 0 06/12/19 23 2:27 PM EDT documented as of this encounter Care Teams Applied Statistician Relationship Specialty Start Date End Date Xavi Khan MD [address] [place] [address] PCP - General Internal Medicine 03/29/18 Eric Marie, DeshawnD [address] [place] [address] Pharmacist Internal Medicine 02/27/22 10/29/24 documented as of this encounter
--- OUTSIDE RECORDS SUMMARY | 2024-11-21 17:09 | XMS_ITS | Encounter Summary ---
Author Organization [employer] Address [address] [facility] 7 [place] [address] Care Team Providers Care Teletypesetter Operator Name Role Phone Xavi Khan MD Primary Care Provider [phone] Eric Marie PharmD Unavailable Unavail able Encounter Details Date Type Department Care Team ([facility] st Contact Info) Description 07/21/2023 Orders Only [facility] MED & PEDS [address] [place], [place] [phone] Xavi Khan MD [address] [place], [place] [phone] Gastroesophageal reflux disease without esophagitis (Primary Dx) Social History Tobacco Use Types Packs/Day Years Used Date Smoking Tobacco: Never Smokeless Tobacco: Never Alcohol Use Standard Drinks/Week Comments Never 0 (1 standard drink = 0.6 oz pur e alcohol) Depression Answer Date Recorded Patient Health Questionnaire-9 Score 0 06/11/2022 Housing Stability Answer Date Recorded What is your housing situation today? I have camryn waters 02/01/[address] you li ve. Do you have problems with any of the following? None of the above 02/01/2023 Food Insecurity Answer Date Recorded Within the past 12 months, y ou worried that your food would run out before you got money to buy more: Never True 02/01/2023 Within the past 12 months,th e food you bought just didn't last and you didn't have enough money to get more: Never True 08/2022 Transportation Answer Date Recorded In the past 12 months, has l ack of transportation kept you from medical appts, meetings, work or from getting things needed for daily living? No 02/01/2023 Utilities Answer Date Recorded In the past 12 months, has t he electric, gas, oil or water company threatened to shut off services in your home? No 02/01/2023 Depression Answer Date Recorded Patient Health Questionnaire-2 Score 0 06/11/2022 Sex and Gender Information Value Date Recorded Sex Assigned at Male 01/26/2022 10:17 AM EDT Legal Sex Male 10:17 AM EDT Gender Identity Choose not to disclose 10:17 AM EDT Sexual Orientation Choose not to disclose 2021 10:17 AM EDT documented as of this encounter Plan of Treatment Upcoming Encounters Date Type Department Care Team (Late st Contact Info) Description 12/05/2024 2:00 PM EDT Office Visit [facility] MED & PEDS [address] [place] [address] Xavi Khan MD [address] [place] [address] 12/11/2024 11:00 AM EDT Medication Management [facility] MED & PEDS [address] [place], [place] [phone] Radha Zayas PharmD [address] [place], [place] [phone] documented as of this encounter Goals Goal Patient Goal Type Associated Problems Recent Progress Patient-Stated? Author Blood Pressure < 140/90 Blood Pressure 158/110(2024 12:04 PM EDT) No Eric Marie, PharmD documented as of this encounter Visit Diagnoses Diagnosis Gastroesophageal reflux disease without esophagitis- Primary Esophageal reflux documented in this encounter Additional Health Concerns Assessment Noted Time PHQ-9 Depression Total Score: 0 06/12/19 23 2:27 PM EDT documented as of this encounter Care Teams Teletypesetter Operator Relationship Specialty Start Date End Date Xavi Khan MD [address] [place] [address] PCP - General Internal Medicine 03/29/18 Eric Marie, PharmD [address] [place] [phone] Pharmacist Internal Medicine 02/27/22 10/29/24 documented as of this encounter
--- OUTSIDE RECORDS SUMMARY | 2024-11-21 17:09 | XMS_ITS | Encounter Summary ---
Author Organization [employer] Address 75 [facility] 7t [place] [address] Care Team Providers Care Electronics Worker Name Role Phone Xavi Khan MD Primary Care Provider [phone] Encounter Details Date Type Department Care Team (Latest Contact Info) Description 11/21/2024 Travel Social History Tobacco Use Types Packs/Day Years Used Date Smoking Tobacco: Never Smokeless Tobacco: Never Alcohol Use Standard Drinks/Week Comments Never 0 (1 standard drink = 0.6 oz pur e alcohol) Depression Answer Date Recorded Patient Health Questionnaire-9 Score 0 06/11/2022 Housing Stability Answer Date Recorded What is your housing situation today? I have camryn evelin 02/09/[address] you li [...] Description 12/05/2024 2:00 PM EDT Office Visit [facility] MED & PEDS [address] [place] [address] Xavi Khan MD [address] [place] [address] 12/11/2024 11:00 AM EDT Medication Management [facility] MED & PEDS [address] [place] [address] Radha Zayas, PharmD [address] [place] [address] documented as of this encounter Goals Goal [...] documented as of this encounter Care Teams Electronics Worker Relationship Specialty Start Date End Date Xavi Khan MD [address] [place] [address] PCP - General Internal Medicine 03/29/18 documented as of this encounter
--- OUTSIDE RECORDS SUMMARY | 2024-11-21 17:09 | XMS_ITS | Clinical Summary ---
Author Organization [employer] Address [address] [facility] 7t [place] [address] Care Team Providers Care Laborer Electroplating Name Role Phone Xavi Khan MD Primary Care Provider [phone] Allergies No known active allergies Medications * This document contains information received from the source organization and may not represent a complete record from that organization. glucose blood (FREESTYLE LITE) test strip Inject under the skin every 8 (eight) hours. 08/27/19 22 Active Alcohol Swabs (Alcohol Prep) 70 % pads 1 each every 8 (eight) hours. 01/10/20 22 Active TRUEplus Lancets 33G miscIndications:T ype 2 diabetes mellitus without complication, without long-term current use of insulin ([facility]) TEST BLOOD SUGAR THREE TIMES DAILY 100 each 11 06/13/19 23 Active pantoprazole (ProtoNix) 20 MG EC tablet TAKE ONE TABLET EVERY MORNING 90 tablet 06/23/19 25 Active sertraline (Zoloft) 25 MG tabletIndications :Anxiety and depression,Other depression Take 1 tablet (25 mg) by mouth Once per day. 30 tablet 11 09/20/19 25 2025 Active amLODIPine (Norvasc) 5 MG tabletIndications :Essential hypertension Take 1 tablet (5 mg) by mouth Once per day. 30 tablet 11 09/20/19 25 2025 Active amitriptyline (Elavil) 10 MG tabletIndications :Cyclical vomiting associated with nonintractable migraine 1 to 2 tabs at bedtime 60 tablet 3 09/20/19 25 Active metFORMIN (Glucophage) 1000 MG tabletIndications :Hyperglycemia,Ty pe 2 diabetes mellitus with hyperglycemia, without long-term current use of insulin ([facility]) Take 1 tablet (1,000 mg) by mouth with breakfast and with evening meal. 60 tablet 11 09/20/19 25 2025 Active lisinopril-hydroC HLOROthiazide 20-12.5 MG tabletIndications :Primary hypertension TAKE ONE TABLET EVERY MORNING 30 tablet 1 11/21/19 Active doxycycline (Vibramycin) 100 MG capsule Take 1 capsule (100 mg) by mouth 2 times daily for 7 days. Take with at least 8 ounces (large glass) of water, do not lie down for 30 minutes after 14 capsule 11/22/192024 Active pantoprazole (ProtoNix) 20 MG EC tabletIndications :Gastroesophageal reflux disease without esophagitis Take 1 tablet (20 mg) by mouth in the morning. Do not crush, chew, or split. 90 tablet 07/21/19 24 2024 Discontinued(D uplicate order (will not trigger notification to Pharmacy)) lisinopril-hydroC HLOROthiazide 20-12.5 MG tabletIndications :Primary hypertension TAKE ONE TABLET EVERY MORNING 90 tablet 06/23/19 25 2024 Discontinued metFORMIN (Glucophage) 500 MG tabletIndications :Type 2 diabetes mellitus without complication, without long-term current use of insulin ([facility]) TAKE 1 TABLET IN THE MORNING AND EVENING WITH MEALS 180 tablet 06/23/192024 Discontinued(D uplicate order (will not trigger notification to Pharmacy)) Active Problems Problem Noted Date Diagnosed Date Type 2 diabetes mellitus wit h hyperglycemia, without long-term current use of insulin 09/19/2024 Essential hypertension 06/11/2022 Liver function test abnormality 03/14/2022 Obesity (BMI 30-39.9) 02/27/2016 Encounters * This document contains information received from the source organization and may not represent a complete record from that organization. Date Type Department Care Team Description 11/21/2024 11:00 AM EDT Office Visit [facility] [address] [place] [phone] Chris Thompson MD Cutaneous abscess of left axilla (Primary Dx); Essential hypertension 11/21/2024 Telephone [facility] [address] [place] [address] Xavi Khan MD Medication Question 11/21/2024 Telephone [facility] [address] [place] [phone] Chris Thompson MD ED Expect to [facility] 11/21/2024 Travel 11/18/2024 Refill [facility] [address] [place] [address] Sisi Finch DO Primary hypertension 09/20/2024 Telephone [facility] [address] [place] [address] Xavi Khan MD Medication Question 09/20/2024 Telephone [facility] [address] [place] [address] Xavi Khan MD 09/19/2024 3:30 PM EDT Office Visit [facility] [address] [place] [address] Xavi Khan MD Anxiety and depression (Primary Dx); Other depression; Hyperglycemia; Essential hypertension; Cyclical vomiting associated with nonintractable migraine; Type 2 diabetes mellitus with hyperglycemia, without long-term current use of insulin ([facility]); Dietary counseling; Exercise counseling; Class 1 obesity due to excess calories with serious comorbidity and body mass index (BMI) of 33.0 to 33.9 in adult 09/19/2024 Travel 09/13/2024 Patient Outreach [address] [address] Xavi Khan MD Care Coordination ([facility] outreach for SDOH PT-1 and food needs-referral completed /) 09/12/2024 Patient Outreach [address] [address] Xavi Khan MD Pre-visit Planning (SDOH screening positive and Tobacco screening negative) from Last 3 Months Immunizations Immunization Administration Dates Next Due Influenza injectable quadriv alent IIV4 with preservative 01/13/2018,12/23/2016,02/27/2016 Influenza injectable quadriv alent preservative free 01/10/2015 Influenza, IIV3, injectable 03/01/2014 Influenza, Split (incl. luis angel fied surface antigen) 03/07/2013,12/09/2011 Pneumococcal Conjugate PCV 20 11/12/2023 Tdap 01/10/2015 Social History Tobacco Use Types Packs/Day Years Used Date Smoking Tobacco: Never Smokeless Tobacco: Never Tobacco Cessation:Counseling Given: Not Answered Alcohol Use Standard Drinks/Week Comments Never 0 [...] not to disclose 2021 10:17 AM EDT Last Filed Vital Signs Vital Sign Reading Time Taken Comments Blood Pressure 158/110 11/21/2024 12:04 PM EDT Pulse 96 11/21/2024 11:11 AM EDT Temperature 36.9 C (98.4 F) 09/19/2024 3:51 PM EDT Respiratory Rate 16 11/21/2024 11:11 AM EDT Oxygen Saturation 98% 11/21/2024 11:11 AM EDT Inhaled Oxygen Concentration - - Weight 98.2 kg (216 lb 6.4 oz) 11/21/2024 11:11 AM EDT Height 172.7 cm (5' 8 ) 11/21/2024 11:11 AM EDT Body Mass Index 32.9 11/21/2024 11:11 AM EDT Plan of Treatment Upcoming Encounters Date Type Department Care Team (Late st Contact Info) Description 12/05/2024 2:00 PM EDT Office Visit [facility] [address] [place] [address] Xavi Khan MD [address] [place] [address] 12/11/2024 11:00 AM EDT Medication Management [facility] [address] [place] [address] Radha Zayas, PharmD [address] [place] [address] Health Maintenance Due Date Last Done Comments HIV Screening 1990 Disability Screening 1990 Alcohol/Substance Use Screening 2002 Family Planning (PISQ) 2005 HPV Vaccines (1 - 3-dose series) 2005 Hepatitis B Vaccines (1 of 3 - 19+ 3-dose series) 2009 Diabetes: Urine Protein Screening 06/25/2022 06/25/2021 Lipid Panel 06/25/2022 06/25/2021 Dental Oral Exam 05/07/2023 11/03/2022 Dental Prophylaxis 05/07/2023 11/03/2022 Depression Screening 06/12/2023 06/11/2022, 06/12/19 Dental X-Ray: Bitewings 11/05/2023 11/03/2022 COVID-19 Vaccine ( season) 2023 09/05/2020, 08/08/2020 Eye Exam 03/09/2024 03/09/2023 Diabetes: Foot Exam 11/11/2024 11/12/2023 Influenza Vaccine (#1) 2024 8, 12/23/2016, 02/27/2016, Additional history exists Diabetes: Hemoglobin A1C 12/20/2024 025, 11/12/2023, 06/25/2021 DTaP/Tdap/Td Vaccines (2 - Td or Tdap) 01/10/2025 01/10/2015 SDOH Screening 09/12/2025 09/12/2024 Dental X-Ray: Full Mouth 11/04/2025 11/03/2022 Tobacco Screening 11/21/2025 11/21/2024 Zoster Vaccines (1 of 2) 2040 RSV Patients and Patients Aged 60 years or older (1 - 1-dose 75+ series) 2065 Hepatitis C Screening Completed 03/16/2022 Pneumococcal Vaccine: Pediatrics (0 to 5 Years) and At-Risk Patients (6 to 49) Years Completed 11/12/2023 HIB Vaccines Aged Out No longer eligi ble based on patient's age to complete this topic Hepatitis A Vaccines Aged Out No long er eligible based on patient's age to complete this topic IPV Vaccines Aged Out No longer eligi ble based on patient's age to complete this topic Meningococcal B Vaccine Aged Out No l onger eligible based on patient's age to complete this topic Meningococcal Vaccine Aged Out No kim elin eligible based on patient's age to complete this topic RSV under 20 months Aged Out No longe r eligible based on patient's age to complete this topic Rotavirus Vaccines Aged Out No longer eligible based on patient's age to complete this topic Goals Goal Patient Goal Type Associated Problems Recent Progress Patient-Stated? Author Blood Pressure < 140/90 Blood Pressure 158/110(2024 12:04 PM EDT) No Eric Marie, Yandy Procedures Procedure Name Priority Date/Time Associated Diagnosis Comments POCT GLUCOSE Routine 09/19/2024 4:18 PM EDT Hyperglycemia POCT GLYCATED HEMOGLOBIN, TOTAL Routine 09/19/2024 4:17 PM EDT Hyperglycemia PROPHYLAXIS - ADULT Routine 11/03/2022 1 :00 PM EDT INTRAORAL - COMPLETE SERIES OF RADIOGRAPHIC IMAGES Routine 11/03/2022 1:00 PM EDT PERIODIC ORAL EVALUATION - ESTABLISHED PATIENT Routine 11/03/2022 1:00 PM EDT HEPATITIS C AB W/REFL TO HCV RNA, QN, PCR Routine 03/16/2022 10:41 AM EST Liver function test abnormality ALBUMIN, RANDOM URINE W/CREATININE Routine 06/25/2021 11:02 AM EDT LIPID PANEL, STANDARD Routine 06/25/2021 11:02 AM EDT from Last 3 Months or Most Recently Relevant to Health Maintenance Results * (ABNORMAL) POCT Glucose (09/19/2024 4:18 PM EDT) Pathologist [facility] Glucose Blood, POC 432(A) 60 - 200 mg/dL QC Media Lot # [id number] Comment:random Lot# Expiration Date Blood Capillary blood specimen / Unknown 09/19/2024 4:18 PM EDT Xavi Khan MD POINT OF CARE TEST ENTER/ED IT ORDERABLES Final Result * (ABNORMAL) POCT HGB A1C (09/19/2024 4:17 PM EDT) Pathologist [facility] Hemoglobin A1C 9.9(A) 4.0 - 6.0 % QC Media Lot # [id number] Lot# Expiration Date Blood 09/19/2024 4:17 PM EDT Xavi Khan MD POINT OF CARE TEST ENTER/ED IT ORDERABLES Final Result * Hepatitis C Antibody with Reflex to HCV, RNA, Quantitative, Real-Time PCR (03/16/2022 10:41 AM EST) Pathologist [facility] Hepatitis C Antibody NON-REACT LESA NON-REACT LESA [employer] [place] [employer] Index 0.06 <1.00 [employer] Comment: HCV antibody was non-reactive. There is no laboratory evidence of HCV infection. In most cases, no further action is required. However, if recent HCV exposure is suspected, a test for HCV RNA (test code 99930) is suggested. For additional information please refer to http://education.Squeakee/faq/BRZ34d5 (This link is being provided for informational/ educational purposes only.) Blood Venous blood specimen / Unknown 03/16/2022 10:41 AM EST 03/16/2022 10:41 AM EST us Xavi Khan MD LAB BLOOD ORDERABLES Final Result Performing Organization Address [facility] Co de Phone Number [facility] [address] [place] [address], [facility], [place] [address] [employer] [place] [employer] [address] [facility], (Nl2) [place] [address] * ALBUMIN, RANDOM URINE W/CREATININE (06/25/2021 11:02 AM EDT) Microalbumin Urine 3.2 See Note: mg/dL [facility] Comment: Reference Range: Reference Range Not established Microalb/Creat Ratio 17 <30 mcg/mg creat [facility] Comment: The ADA defines abnormalities in albumin excretion as follows: Albuminuria Category Result (mcg/mg creatinine) Normal to Mildly increased <30 Moderately increased 30-299 Severely increased > OR = 300 The ADA recommends that at least two of three specimens collected within a 3-6 month period be abnormal before considering a patient to be within a diagnostic category. Creatinine, Urine 185 20 - 320 mg/dL [facility] 06/25/2021 11:0 2 AM EDT us Charo Molina MD LAB URINE ORDERABLES Final Re sult Performing Organization Address [facility] Co de Phone Number [facility] [address] [place] [address], * (ABNORMAL) LIPID PANEL, STANDARD (06/25/2021 11:02 AM EDT) Chol/HDLC Ratio 3.8 <5.0 (calc) [facility] Cholesterol, Total 143 <200 mg/dL [facility] HDL Cholesterol 38(L) > OR = 40 mg/dL [facility] LDL Cholesterol 85 mg/dL (calc) [facility] Comment: Reference range: <100 Desirable range <100 mg/dL for primary prevention; <70 mg/dL for patients with CHD or diabetic patients with > or = 2 CHD risk factors. LDL-C is now calculated using the Keli calculation, which is a validated novel method providing better accuracy than the Friedewald equation in the estimation of LDL-C. Fabian SS et al. RANDEE. 2013;310(19): 0709-5094 (http://education.DesignFace IT.Nuovo Wind/faq/SKG747) Non-HDL Cholesterol 105 <130 mg/dL (calc) [facility] Comment: For patients with diabetes plus 1 major ASCVD risk factor, treating to a non-HDL-C goal of <100 mg/dL (LDL-C of <70 mg/dL) is considered a therapeutic option. Triglycerides 100 <150 mg/dL [facility] 06/25/2021 11:0 2 AM EDT us Charo Molina MD LAB BLOOD ORDERABLES Final Re sult [facility] [address] from Last 3 Months or Most Recently Relevant to Health Maintenance Insurance [place] [address] [place] [phone] DENTAL - HSN PARTIAL (MEDICAID) Care Teams Laborer Electroplating Relationship Specialty Start Date End Date Xavi Khan MD [address] [place] [address] FRITZ Freed [address] PCP - General Internal Medicine 03/29/18
--- OUTSIDE RECORDS SUMMARY | 2024-11-21 17:09 | XMS_ITS | Encounter Summary ---
Author Organization [employer] Address [address] [facility] 7 [place] [address] Care Team Providers Care Fire Observer Name Role Phone Xavi Khan MD Primary Care Provider [phone] Eric Marie PharmD Unavailable Unavail able Encounter Details Date Type Department Care Team ([facility] Contact Info) Description 03/14/2022 Orders Only [facility] [address] [place], [place] [phone] Xavi Khan MD [address] [place], [place] [phone] Liver function test abnormality (Primary Dx) Social History Tobacco Use Types Packs/Day Years Used Date Smoking Tobacco: Never Smokeless Tobacco: Never Alcohol Use Standard Drinks/Week Comments Never 0 (1 standard drink = 0.6 oz pur e alcohol) Sex and Gender Information Value Date Recorded [...] suspected to have Coronavirus/COVID-19? No / Unsure 03/10/2022 3:43 PM EST documented as of this encounter Plan of Treatment Upcoming Encounters Date Type Department Care Team ([facility] Contact Info) Description 12/05/2024 2:00 PM EDT Office Visit [facility] [address] [place] [address] Xavi Khan MD [address] [place] [address] 12/11/2024 11:00 AM EDT Medication Management [facility] [address] [place] [address] Radha Zayas PharmD [address] [place] [address] Scheduled Orders Name Type Priority Associated Diagnoses Orde r Schedule Hepatitis B Surface Antibody, Qualitative Lab Routine Liver function test abnormality Expected: 03/14/2022 (Approximate), Expires: 03/14/2023 documented as of this encounter Goals Goal Patient Goal Type Associated Problems Recent Progress Patient-Stated? Author Blood Pressure < 140/90 Blood Pressure 158/110(2024 12:04 PM EDT) No Eric Marie PharmD documented as of this encounter Procedures Procedure Name Priority Date/Time Associated Diagnosis Comments HEPATITIS C AB W/REFL TO HCV RNA, QN, PCR Routine 03/16/2022 10:41 AM EST Liver function test abnormality HEPATITIS B SURFACE ANTIBODY, QUALITATIVE Routine 03/16/2022 10:41 AM EST Liver function test abnormality HEPATITIS B SURFACE ANTIGEN W/REFL CONFIRM Routine 03/16/2022 10:41 AM EST Liver function test abnormality documented in this encounter Results * Hepatitis B Surface Antigen with Reflex Confirmation (03/16/2022 10:41 AM EST) Hepatitis B Surface Ag NON-REACT LESA NON-REACT LESA [facility] Blood Venous blood specimen / Unknown 03/16/2022 10:41 AM EST 03/16/2022 10:41 AM EST Xavi Khan MD LAB BLOOD ORDERABLES Final Result [facility] [address] [place] [address], [place] [address] [employer] [place] [employer] [address] [place] [address], ([address]) [place] [address] * Hepatitis C Antibody with Reflex to HCV, RNA, Quantitative, Real-Time PCR (03/16/2022 10:41 AM EST) Hepatitis C Antibody NON-REACT LESA NON-REACT LESA [employer] [place] [employer] Index 0.06 <1.00 [employer] [place] [employer] Comment: HCV antibody was non-reactive. There is no laboratory evidence of HCV infection. In most cases, no further action is required. However, if recent HCV exposure is suspected, a test for HCV RNA (test code 52588) is suggested. For additional information please refer to http://education.FameCast/faq/PQB14w4 (This link is being provided for informational/ educational purposes only.) Blood Venous blood specimen / Unknown 03/16/2022 10:41 AM EST 03/16/2022 10:41 AM EST us Xavi Khan MD LAB BLOOD ORDERABLES Final Result [address], [place] [address] [employer] [place] [employer] [address] [place] [address], ([address]) [place] [address] * (ABNORMAL) Hepatitis B Surface Antibody, Qualitative (03/16/2022 10:41 AM EST) Hepatitis B Surface Antibody QL REACTIVE( A) NON-REACT LESA [employer] [place] [employer] Blood Venous blood specimen / Unknown 03/16/2022 10:41 AM EST 03/16/2022 10:41 AM EST Xavi Khan MD LAB BLOOD ORDERABLES Final Result [address], [place] [address] [employer] [place] [facility] [address] [place] [address], ([address]) [place] [address] documented in this encounter Visit Diagnoses Diagnosis Liver function test abnormality- Primary Nonspecific abnormal results of liver function study documented in this encounter Care Teams Fire Observer Relationship Specialty Start Date End Date Xavi Khan MD [address] [place] [address] PCP - General Internal Medicine 03/29/18 Eric Marie, DeshawnD [address] [place] [address] Pharmacist Internal Medicine 02/27/22 10/29/24 documented as of this encounter
--- OUTSIDE RECORDS SUMMARY | 2024-11-21 17:09 | XMS_ITS | Encounter Summary ---
Author Organization [employer] Address [address] [facility] [address] [place] [address] Care Team Providers Care Ornamental Iron Erector Name Role Phone Xavi Khan MD Primary Care Provider [phone] Eric Marie PharmD Unavailable Unavail able Reason for Visit * Reason Onset Date Comments Nurse Triage 06/21/2024 Encounter Details Date Type Department Care Team ([facility] st Contact Info) Description 06/21/2024 Telephone [facility] MED & PEDS [address], [place] [phone] Xavi Khan MD [address] [place] [address] Nurse Triage Social History Tobacco Use Types Packs/Day Years [...] getting things needed for daily living? No 02/09/2024 Utilities Answer Date Recorded In the past [...] encounter Miscellaneous Notes * Telephone Encounter - Joyce Hunter RN - 06/21/2024 12:03 PM EDT Triage call Pt reports, I am driving over there right now my ear hurts so much . Pt is advised tocome to [place] at [facility] to be seen by provider and Pt agrees with this plan. Pt reports increasing rightear pain over last 2 days. Pt reports neg for drainage, fever but, after shower today water which entered the ear increased the pain. Pt agrees with this disposition and insurance is verified as active. Protocol Used: Earache (Adult) Protocol-Based Disposition: Go to Office or Video Visit Now Positive Triage Question: * Severe earache pain (e.g., excruciating) * All higher-acuity triage questions were negative Care Advice Discussed: * Reassurance and Education - Earache * Reasons To Call Back - Severe pain lasts over 2 hours after pain medicine - You become worse * Telephone Encounter - Merrill Grullon - 06/21/2024 11:01 AM EDT Tc from pt returning call regarding prior message. Contact pt at [phone] * Telephone Encounter - Deya Rich - 06/21/2024 10:41 AM EDT Symptom: Earache Outcome: Schedule a same-day appointment or talk to a nurse or provider today Reason: Caller denied all higher acuity questions The caller accepted this outcome. documented in this encounter Plan of Treatment Upcoming Encounters Date Type Department Care Team (Late st Contact Info) Description 12/05/2024 2:00 PM EDT Office Visit [facility] MED & PEDS [address] [place] [address] Xavi Khan MD [address] [place] [address] 12/11/2024 11:00 AM EDT Medication Management [facility] MED & PEDS [address], [place] [phone] Radha Zayas PharmD [address] [place] [address] [phone] documented as of this encounter Goals Goal Patient Goal Type Associated Problems Recent Progress Patient-Stated? Author Blood Pressure < 140/90 Blood Pressure 158/110(2024 12:04 PM EDT) No Eric Marie PharmD documented as of this encounter Visit Diagnoses Not on filedocumented in this encounter Additional Health Concerns Assessment Noted Time PHQ-9 Depression Total Score: 0 06/12/19 23 2:27 PM EDT documented as of this encounter Care Teams Ornamental Iron Erector Relationship Specialty Start Date End Date Xavi Khan MD [address] [place] [address] PCP - General Internal Medicine 03/29/18 Eric Marie, DeshawnD [address] [place] [address] Pharmacist Internal Medicine 02/27/22 10/29/24 documented as of this encounter
--- OUTSIDE RECORDS SUMMARY | 2024-11-21 17:09 | XMS_ITS | Encounter Summary ---
Author Organization [employer] Address [address] [facility] [address] [place] [address] Care Team Providers Care Lounge Car Attendant Name Role Phone Xavi Khan MD Primary Care Provider [phone] Reason for Visit * Reason Comments Med Refill Encounter Details Date Type Department Care Team ([facility] st Contact Info) Description 11/18/2024 Refill [facility] [address] [place], [place] [phone] Sisi Finch DO [address] [place], [place] [phone] Primary hypertension Social History Tobacco Use Types Packs/Day [...] Description 12/05/2024 2:00 PM EDT Office Visit [facility] MED & PEDS [address] [place] [address] Xavi Khan MD [address] [place] [address] 12/11/2024 11:00 AM EDT Medication Management [facility] MED & PEDS [address] [place] [address] Radha Zayas PharmD [address] [place] [address] documented as of this encounter Goals Goal Patient Goal Type Associated Problems Recent Progress Patient-Stated? Author Blood Pressure < 140/90 Blood Pressure 158/110(2024 12:04 PM EDT) No Eric Marie PharmD documented as of this encounter Visit Diagnoses Diagnosis Primary hypertension Unspecified essential hypertension documented in this encounter Additional Health Concerns Assessment Noted Time PHQ-9 Depression Total Score: 0 06/12/19 23 2:27 PM EDT documented as of this encounter Care Teams Lounge Car Attendant Relationship Specialty Start Date End Date Xavi Khan MD [address] [place] [address] PCP - General Internal Medicine 03/29/18 documented as of this encounter
--- OUTSIDE RECORDS SUMMARY | 2024-11-21 17:09 | XMS_ITS | Encounter Summary ---
Author Organization [employer] Address [address] [facility] [address] [place] [address] Care Team Providers Care Power Grader Operator Name Role Phone Xavi Khan MD Primary Care Provider [phone] Reason for Visit * Reason Onset Date Comments Medication Question 11/21/2024 Encounter Details Date Type Department Care Team (Late st Contact Info) Description 11/21/2024 Telephone [facility] MED[facility]INE [address] [place] [address] Xavi Khan MD [address] [place], [place] [phone] Medication Question Social History Tobacco Use Types Packs/Day Years [...] Encounter - Elinor Yanez RN - 11/21/2024 1:44 PM EDT TC from pt reports was seen today at [facility] for cyst on arm . Wondering if provider can prescribe him medication . TC placed to pt as pt was seen in walk in center and advised to go to ED as the walk in center can not drain the cyst here as it is to large in size, pt is there now. Patient states it is taking to long advised pt that Dr Thompson called general surgery can not see him at this time and that he should stay to be evaluated. Medbox's are ready for pickling solution maker at [facility] pharmacy and no new meds will be prescribed from walk in * Telephone Encounter - Marlo White - 11/21/2024 1:26 PM EDT TC from pt reports was seen today at [facility] for cyst on arm . Wondering if provider can prescribe him medication . documented in this encounter Plan of Treatment Upcoming Encounters Date Type Department Care Team (Late st Contact Info) Description 12/05/2024 2:00 PM EDT Office Visit [facility] MED & PEDS [address] [place] [address] Xavi Khan MD [address] [place] [address] 12/11/2024 11:00 AM EDT Medication Management [facility] MED & PEDS [address] [place] [address] Radha Zayas PharmD [address] [place] [address] documented as of this encounter Goals Goal [...] documented as of this encounter Care Teams Power Grader Operator Relationship Specialty Start Date End Date Xavi Khan MD [address] [place] [address] PCP - General Internal Medicine 03/29/18 documented as of this encounter
[2024-11-21 19:13] VITALS: BP 156/102; PULSE 87; RESP 18; TEMP 36.4; O2SAT 97
[2024-11-21 20:13] VITALS: BP 156/102; PULSE 87; RESP 18; TEMP 36.4; O2SAT 97
== END 2024-11-21 20:13 | disposition home or self-care (01) ==
PROVIDERS: Emergency Provider Emergency Medicine
DX: L02.414 Cutaneous abscess of left upper limb (principal)
CPT/HCPCS: 10060; 87070; 87205; 99283; 99284